=== PATIENT | female | born 1950 | race Caucasian/White ===

== ENCOUNTER → 2017-10-13 06:01 | Outpatient (CLI) | payer OTHER, SELFPAY ==
--- NOTE | 2017-10-13 09:41 | STRESSREP ---
Stress Test Report Date: 10/13/2017 Procedure: Pharmacologic stress nuclear imaging study Indications: Shortness of breath/dyspnea Consent: Per the patient Procedure: The patient underwent pharmacologic (Regadenoson) evaluation with a peak heart rate of 102 beats per minute (65 predicted maximal heart rate) and a peak blood pressure of 146/68 mmHg. The baseline ECG demonstrated sinus bradycardia. The peak pharmacologic ECG demonstrated no obvious ECG changes. There were no cardiac dysrhythmias pretest, during pharmacologic infusion, or recovery. There was no complaint of chest discomfort during pharmacologic infusion or recovery. The examination was discontinued secondary to completion of protocol. Impression: 1. Pharmacologic (Regadenoson) evaluation 2. Peak pharmacologic ECG with no obvious ECG changes. 3. There were no cardiac dysrhythmias pretest, during pharmacologic infusion, or recovery 4. Nuclear images pending Myocardial perfusion imaging study: Technique: The patient was injected with 14.5 millicuries of technetium 99m Cardiolite and subsequently rest SPECT Cardiolite nuclear imaging was obtained in the horizontal long, vertical long, and short axis views. The patient underwent pharmacologic (Regadenoson) evaluation with a peak heart rate of 102 beats per minute (65 % percent predicted maximal heart rate) and a peak blood pressure of 146/68 mmHg. The patient was injected with 44.8 millicuries of technetium 99m Cardiolite and subsequently stress SPECT Cardiolite nuclear imaging was obtained in the horizontal long, vertical long, and short axis views. A gated Cardiolite study at peak stress was obtained. Interpretation: Rest and stress SPECT Cardiolite nuclear imaging status post realignment, normalization, and attenuation correction demonstrate relative uniform tracer uptake and myocardial perfusion appearing within normal limits. There is end systolic thickening and brightening. The gated Cardiolite study demonstrates myocardial thickening and inward wall motion. The reported LVEF is 75 %. Impression: 1. Rest and stress SPECT Cardiolite nuclear imaging demonstrate relative uniform tracer uptake and myocardial perfusion appearing within normal limits. 2. The gated Cardiolite study reports an LVEF of 75 %. This note was generated with [employer] software. It may contain incorrect words, spelling, and punctuation that were not noted in checking the note before signing.
== END ==
PROVIDERS: Family Provider Family Medicine; PCP Family Medicine; Visit Provider Internal Medicine Cardiovascular Disease
DX: I10 Essential (primary) hypertension (principal); R06.02 Shortness of breath
CPT/HCPCS: 78452; 93017; A9500; A4216; J2785

== ENCOUNTER 2021-06-10 13:52 | Outpatient (CLI) | payer MEDICARE, BC, SELFPAY ==
--- NOTE | 2021-06-10 15:29 | NEURO ---
NCS and/or EMG Patient Report Ordering Doctor: Adonay Maddox DATE OF SERVICE: 06/10/21 Eleanor presents for electrodiagnostic testing of the upper limbs. She has pain and numbness in the hands at night, more prominent on the left side. Symptoms have persisted for approximately 2 years. She has a history of diabetes. Additionally, she complains of left shoulder pain radiating into the arm and into the scapula. Electrodiagnostic findings: Median motor nerve demonstrates prolonged distal latency bilaterally with normal amplitude and conduction velocity. Normal ulnar motor response bilaterally. Prolonged left median F wave. Prolonged median sensory latency at the wrist bilaterally. Prolonged left palmar latency. Normal ulnar and radial sensory responses. On needle EMG, all muscles tested in the upper limbs showed no evidence of denervation with normal motor unit action potentials. Electrodiagnostic assessment: This is an abnormal study in the upper limbs 1. Electrodiagnostic findings demonstrate bilateral median mononeuropathy. This is consistent with an advanced left carpal tunnel syndrome and a moderate to advanced right carpal tunnel syndrome.
== END 2021-06-10 23:59 | disposition home or self-care (01) ==
LOC: PSN 13:56
PROVIDERS: PCP Family Medicine; Referring Provider Orthopaedic Surgery; Visit Provider Orthopaedic Surgery
DX: M25.532 Pain in left wrist (principal); R20.0 Anesthesia of skin
CPT/HCPCS: 95886; 95913

== ENCOUNTER → 2021-08-31 | Outpatient (CLI) | payer MEDICARE, BC, SELFPAY ==
--- NOTE | 2021-08-31 12:53 | ECHOD_ITS ---
Reason For Study: SOB Procedure This was a 2D Doppler, Color Flow transthoracic echocardiogram. The study was technically difficult. Contrast injection was performed. Exam performed in department. Left Ventricle Normal LV size. Left ventricular systolic function is normal. The estimated ejection fraction is 60 %. Diastolic function is indeterminate. No regional wall motion abnormalities noted. Right Ventricle Normal RV size. Normal systolic function. Atria The left atrium is mildly enlarged. Normal right atrium. No doppler evidence for ASD. Mitral Valve There is mild mitral annular calcification. Extension of the mitral annular calcification onto the base of the posterior mitral valve leaflet. Mild focal mitral valve calcification of the anterior leaflet. Trivial mitral valve insufficiency. Tricuspid Valve Normal tricuspid valve. Trivial tricuspid valve insufficiency. Unable to estimate RV systolic pressure/pulmonary artery pressure due to technically difficult study. Aortic Valve Trisinus/trileaflet aortic valve. Normal aortic valve. Pulmonic Valve The pulmonic valve is not well visualized. Great Vessels The aortic root is not well visualized. Pericardium/Pleural No pericardial effusion. Medication 22 gauge I.V. with prn adaptor inserted into right arm. Diluted definity 1.5ml given slow IV push to enhance endocardial definition. MMode/2D Measurements & Calculations LVIDd: 4.7 cm IVSd: 1.2 cm LVIDs: 3.1 cm LVPWd: 1.3 cm LVAd ap4: 25.8 cm2 RVDd: 3.0 cm FS: 33.8 % LVLd ap4: 7.3 cm EDV(MOD-sp4): 75.2 ml EDV(sp4-el): 77.6 ml LVAs ap4: 15.8 cm2 LVLs ap4: 5.9 cm ESV(MOD-sp4): 34.0 ml ESV(sp4-el): 35.8 ml EF(MOD-sp4): 54.8 % EF(sp4-el): 53.8 % LVAd ap2: 25.3 cm2 SV(MOD-sp4): 41.2 ml SV(MOD-sp2): 40.9 ml LVLd ap2: 7.0 cm EDV(MOD-sp2): 75.7 ml EDV(sp2-el): 77.9 ml LVAs ap2: 15.8 cm2 LVLs ap2: 6.0 cm ESV(MOD-sp2): 34.8 ml ESV(sp2-el): 35.4 ml EF(MOD-sp2): 54.0 % SV(sp4-el): 41.8 ml LA A4 area: 19.2 cm2 LA dimension(2D): 4.1 cm RA A4 area: 11.9 cm2 Doppler Measurements & Calculations MV E max juan: 77.3 cm/sec Lat Peak E' Juan: 6.4 cm/sec Med Peak E' Juan: 4.8 cm/sec MV A max juan: 99.6 cm/sec E/E' lat: 12.1 E/E' med: 16.2 MV E/A: 0.78 Ao V2 max: 168.8 cm/sec LV V1 max: 94.9 cm/sec PA V2 max: 97.1 cm/sec Ao max P.4 mmHg LV V1 max P.6 mmHg ECHO/Echo Complete W/ Contrast Interpretation Summary The study was technically difficult. Contrast injection was performed. Left ventricular systolic function is normal. The estimated ejection fraction is 60 %. The left atrium is mildly enlarged. There is mild mitral annular calcification. Extension of the mitral annular calcification onto the base of the posterior mi tral valve leaflet. Mild focal mitral valve calcification of the anterior leaflet. Trivial mitral valve insufficiency. Trivial tricuspid valve insufficiency. Unable to estimate RV systolic pressure/pulmonary artery pressure due to techni ramona difficult study. Diastolic function is indeterminate. Ordering Physician: Jie Barragan Performed By: Maggi Mojica RCS
== END | disposition home or self-care (01) ==
LOC: CVS 12:51
PROVIDERS: Visit Provider Nurse Practitioner Gerontology
DX: R06.02 Shortness of breath (principal)
CPT/HCPCS: 93306; Q9957; A4216; C8929

== ENCOUNTER → 2021-11-06 | Outpatient (CLI) | payer MEDICARE, BC, SELFPAY ==
--- NOTE | 2021-11-06 13:42 | RAD_ITS ---
EXAM: XR CHEST, 2 VIEWS CLINICAL INDICATION: Cough TECHNIQUE: Frontal and lateral views of the chest. This report was created using [employer] report generation technology. COMPARISON: None. FINDINGS: LUNGS AND PLEURAL SPACES: Unremarkable. No consolidation or edema. No pneumothorax. No effusion. HEART: Unremarkable. Cardiac silhouette not enlarged. MEDIASTINUM: Central airways and mediastinal contour are unremarkable. BONES/JOINTS: Unremarkable. SOFT TISSUES: Unremarkable. RAD/Chest PA and Lateral IMPRESSION: No radiographic evidence of acute cardiopulmonary disease. Electronically Signed: Pete Maya MD at 3:14 EDT ,
== END | disposition home or self-care (01) ==
LOC: RAD 13:37
PROVIDERS: Referring Provider Nurse Practitioner Gerontology; Visit Provider Nurse Practitioner Gerontology
DX: R05.9 Cough, unspecified (principal)
CPT/HCPCS: 71046

== ENCOUNTER → 2022-11-23 | Outpatient (CLI) | payer MEDICARE, BC, SELFPAY ==
--- NOTE | 2022-11-23 15:29 | NEURO ---
NCS and/or EMG Patient Report Ordering Doctor: BARRY LANGE DATE OF SERVICE: 11/23/22 Findings: Nerve conduction studies were performed in the left upper extremity. The left median motor study recording the abductor pollicis brevis showed a markedly reduced amplitude, markedly prolonged latency and slowed conduction velocity. The left ulnar motor study recording the abductor digiti minimi showed a normal amplitude, normal distal latency and normal conduction velocity. No conduction block or focal slowing was present across the elbow. The left median sensory response recording digit two was absent. The left ulnar sensory response recording digit five showed a normal amplitude, latency and conduction velocity. The left radial sensory response recording over the extensor snuff box showed a normal amplitude, latency and conduction velocity. Left median-ulnar lumbrical / interosseous motor latencies showed a markedly prolonged median latency compared to the ulnar. Needle EMG of the left upper extremity muscles was performed. Active denervation was seen in the abductor pollicis brevis muscle. No volitional motor units were seen in the abductor pollicis brevis. All other motor unit morphology, activation and recruitment patterns were normal. Impression: This is a markedly abnormal study. There is electrophysiologic evidence of a severe, essentially end-stage, median neuropathy across the left wrist. This is had progressive dramatically compared to the prior study completed in May 2021. Irineo Chavez D.O. Multi Select Codes Neurology Neurology Interp Codes: 11530-22 Musc test done w/n test comp (interp) and 43256-76 Nr cndj test 7-8 studies (interp)
== END | disposition home or self-care (01) ==
LOC: PSN 14:03
PROVIDERS: Referring Provider Orthopaedic Surgery; Visit Provider Orthopaedic Surgery
DX: R20.0 Anesthesia of skin (principal)
CPT/HCPCS: 95886; 95910